=== PATIENT | female | born 1965 | race Caucasian/White ===

== ENCOUNTER 2016-08-21 13:31 | Emergency (ER) | payer OTHER ==
[~2016-08-21] VITALS: Wt 65.8 kg
[~2016-08-21 13:31] MED LIST: AMOXICILLIN500 MG PO; ANTIBIOTIC O500 U/GM TP; CEPHALEXIN500 M1 PO; CREON; CYCLOBENZAPRINE5 M3 PO; FEOSOL325 MG PO; FIBER GUMMIES1 EACH PO; FIBRE1 TAB PO; Feosol300 MG PO; GUMMY SWIRLS1 EACH PO; HYDROCODONE BIT1 T11 PO; IBUPROFEN600 MG PO; MOTRIN800 MG PO; MULTIPLE VITAMI1 CTB; OYSTER SHELL C500 M3 PO; PERCOCET 325 MG1 TA2 PO; PERCOCET 325 MG1 TA7 PO; PREVACID30 M1 PO; PREVACID30 MG PO; ULTRAM50 MG PO; ZOFRAN4 MG PO
[2016-08-21] MEDS ORDERED: OMEPRAZOLE40 MG PO (13:36)
[2016-08-21] MEDS ORDERED: NORCO 10-325 T1 EACH PO (15:04)
== END 2016-08-21 15:07 | disposition home or self-care (01) ==
LOC: ED 13:31
DX: T14.8 Other injury of unspecified body region (principal); R07.89 Other chest pain; M25.462 Effusion, left knee; Z98.84 Bariatric surgery status; Z87.891 Personal history of nicotine dependence; Z98.51 Tubal ligation status; Z90.49 Acquired absence of other specified parts of digestive tract; Z79.899 Other long term (current) drug therapy; Z91.011 Allergy to milk products; Z91.013 Allergy to seafood; W10.9XXA Fall (on) (from) unspecified stairs and steps, initial encounter; Y93.89 Activity, other specified; Y92.89 Other specified places as the place of occurrence of the external cause; Y99.9 Unspecified external cause status

== ENCOUNTER → 2016-12-13 | Outpatient (CLI) | payer OTHER ==
[~2016-12-13] MED LIST changes: +NORCO 10-325 T1 EACH PO; +OMEPRAZOLE40 MG PO
== END | disposition home or self-care (01) ==
LOC: MAMMO 12-01 11:00
DX: R92.8 Other abnormal and inconclusive findings on diagnostic imaging of breast (principal)

== ENCOUNTER 2017-05-10 20:02 | Inpatient (IN) | payer OTHER ==
[~2017-05-10] VITALS: Ht 160 cm; Wt 66.9 kg
--- NOTE | ~2017-05-10 | PR ---
[place], [place] PROGRESS NOTE NAME: RAJWINDER CISNEROS UNIT #: [id number] ROOM: 402 DOCTOR: JENNIFER METCALF MD BIRTHDATE: [birth year] DOS: 05/12/2017 SUBJECTIVE: The patient is doing better, sitting in a chair. OBJECTIVE: GENERAL: She is a pleasant woman in no apparent distress. VITAL SIGNS: Stable. She is afebrile. HEENT: Normocephalic, atraumatic NECK AND THYROID: Supple. No JVD, thyromegaly, or lymphadenopathy. HEART: Normal S1, S2. Regular rate and rhythm. LUNGS: Clear to auscultation and percussion. ABDOMEN: Soft. Nontender, nondistended. Bowel sounds present. EXTREMITIES: Normal ROM. No clubbing. No edema. LABORATORY DATA: White count of 3.1, hemoglobin 10.2, hematocrit 31.7, platelet count 166,000 with ANC of 1800. ASSESSMENT: 1. Neutropenia, which is improving. 2. Normocytic anemia. 3. History of gastric bypass. PLAN: Overall, her counts are improving, so is her ANC we will just keep a close watch at this time. If it drops, then further intervention, discussed with the patient. JENNIFER METCALF MD CM:PNTRANS [id number] [id number] JENNIFER METCALF MD 05/12/17 1657 interface
--- NOTE | ~2017-05-10 | CON ---
[place], [place] REPORT OF CONSULTATION NAME: RAJWINDER CISNEROS UNIT #: [id number] ROOM: 402 DOCTOR: JENNIFER METCALF MD BIRTHDATE: [birth year] DOS: 05/11/2017 HISTORY OF PRESENT ILLNESS: This is a pleasant 51-year-old woman who was initially admitted because of nausea, vomiting, diarrhea, which has been going for about 5 days associated with some mild abdominal cramps. On the day of admission, she developed some chest pressures as if someone is sitting on the chest associated with midsternal pain. Subsequently, she was admitted on routine CBC examination, she was found to be leukopenic and consulted for further evaluation and management. She states her daughter was diagnosed with flu about 2 weeks ago. PAST MEDICAL HISTORY: Significant for chronic pancreatitis, GERD, multiple contusions, PUD, anterolisthesis. PAST SURGICAL HISTORY: Tubal ligation, history of endometrial ablation, laparoscopic cholecystectomy, pancreatic surgery and history of gastric bypass. SOCIAL HISTORY: Former smoker, stopped smoking quite sometime back. No alcohol or drug abuse. FAMILY HISTORY: Father age 70. Mother at 41 of breast cancer. ALLERGIES: DAIRY, FISH AND IODINE. MEDICATIONS: Docusate sodium, Cymbalta, Premarin, Feosol, Estroven, multivitamins, omeprazole, Zofran, Zantac, Topamax, B complex. PHYSICAL EXAMINATION: GENERAL: She is a pleasant woman in no apparent distress. VITAL SIGNS: Blood pressure 121/66, respirations 19, pulse 61, temperature 97.8. My new female patient. RADIOLOGY: CT chest, abdomen, and pelvis showed no definite acute intra-abdominal pathology identified, status post gastric bypass and cholecystectomy and grade 2 anterolisthesis of L5 on S1 with chronic changes at the lumbosacral junction. LABORATORY DATA: His white count 2.8, hemoglobin 11.6, hematocrit 36.5, platelet count of 192,000. Sodium 142, potassium 4.2, chloride 108, bicarbonate 29, creatinine 0.57, GFR more than 60. AST 43, ALT 52. ASSESSMENT: 1. Leukopenia, probably secondary to bone marrow suppression/infection, medications etc. 2. Intractable nausea and vomiting. 3. Diarrhea. 4. Normocytic anemia. PLAN: ANC is in good numbers. We will keep a close watch at this time. I expect the counts to improve. If her overall condition improves. If not, then [place], [place] REPORT OF CONSULTATION NAME: RAJWINDER CISNEROS UNIT #: [id number] ROOM: 402 DOCTOR: TEA BERRIOS,JENNIFER BIRTHDATE: [birth year] she needs further intervention. If her counts drop, then further workup had detailed discussion with the patient about it, seemed to understand it. In the meantime, we will also review peripheral smear and follow the counts closely. Ample time was given to the patient to ask me questions. We will follow. Thanks for consulting and letting me participate in the care of this interesting patient. White count has also had an ANC 1600. JENNIFER METCALF MD CM:CONSTR:REPORT OF CONSULTATION 1053 05/11/17 1515 interface
[~2017-05-10 20:02] MED LIST changes: +OYSTER SHELL C1 EAC4 PO; -OYSTER SHELL C500 M3 PO
[2017-05-10 20:13] VITALS: BP 133/82
[2017-05-10 20:50] LABS: EOS % 1.1 % (1.0-4.0); HEMATOCRIT 36.5 % (37.0-47.0); HEMOGLOBIN 11.6 g/dl (12.0-16.0); LYMPH % 36.4 % (27.0-41.0); MEAN CELL VOLUME 97.9 fl (81.0-99.0); MEAN CORPUSCULAR HGB 31.1 pg (27.0-31.0); MEAN CORPUSCULAR HGB CONC 31.8 g/dl (33.0-37.0); MEAN PLATELET VOLUME 9.3 fl (9.6-12.3); MONO # 0.2 10*3/uL (0.1-1.0); MONO % 6.1 % (3.0-9.0); NEUT # 1.6 10*3/uL (2.3-7.9); PLATELET COUNT AUTOMATED 192 10*3/uL (130-400); RED BLOOD COUNT 3.73 10*6/uL (4.10-5.10); RED CELL DISTRI WIDTH 14.4 % (0-14.5); WHITE BLOOD COUNT 2.8 10*3/uL (4.8-10.8)
[2017-05-10 21:01] LABS: INTERNATIONAL NORM RATIO 0.9 (2.0-3.5)
[2017-05-10 21:06] LABS: ALKALINE PHOSPHATASE 110 U/L (45-117); BUN 9 mg/dl (7-24); CHLORIDE 108 mmol/L (98-107); CREATININE 0.57 mg/dL (0.55-1.02); POTASSIUM 4.2 mmol/L (3.5-5.1); SGOT/AST 43 IU/L (3-35); SGPT/ALT 52 U/L (12-78); SODIUM 142 mmol/L (136-145)
[2017-05-10 21:07] VITALS: BP 128/72
[2017-05-10 22:25] VITALS: BP 138/82
[2017-05-10 23:57] LABS: BILIRUBIN NEGATIVE (NEGATIVE); BLOOD NEGATIVE (NEGATIVE); CLARITY CLEAR (CLEAR); COLOR YELLOW (YELLOW); GLUCOSE NEGATIVE (NEGATIVE); KETONE NEGATIVE (NEGATIVE); LEUKO ESTERASE NEGATIVE (NEGATIVE); NITRITE NEGATIVE (NEGATIVE); PH 5.5 (5.0-9.0); SPECIFIC GRAVITY <= 1.005 (1.005-1.030); UROBILINOGEN 0.2 E.U./dl (0.2-1.0)
[2017-05-11] VITALS: BP 121/66
[2017-05-11 00:32] LABS: EPITHELIAL CELLS 0-5
[2017-05-11 00:33] LABS: RBC 0-2 rbc/hpf (0-2); WBC 0-2 wbc/hpf (0-5)
[2017-05-11] MEDS ORDERED: B COMPLEX1 EACH PO (01:43)
[2017-05-11] MEDS ORDERED: ZANTAC 300300 MG PO (01:43)
[2017-05-11] MEDS ORDERED: STOOL SOFTENER100 M3 PO (01:44)
[2017-05-11] MEDS ORDERED: TOPAMAX25 M3 PO (01:53)
[2017-05-11] MEDS ORDERED: NORCO 10-325 T1 EACH PO (01:55)
[2017-05-11] MEDS ORDERED: CYMBALTA60 MG PO (02:00)
[2017-05-11] MEDS ORDERED: Zofran4 MG PO (02:01)
[2017-05-11] MEDS ORDERED: ESTROVEN 155 M155 MG PO (02:02)
[2017-05-11] MEDS ORDERED: MULTIVITAMINS1 EAC6 PO (02:03)
[2017-05-11] MEDS ORDERED: PREMARIN30 GM V (02:04)
[2017-05-11 02:39] LABS: BASO % 0.4 % (0.0-1.0); EOS % 0.4 % (1.0-4.0); HEMOGLOBIN 9.9 g/dl (12.0-16.0); LYMPH # 1.2 10*3/uL (1.3-4.4); LYMPH % 48.2 % (27.0-41.0); MEAN CELL VOLUME 98.1 fl (81.0-99.0); MEAN CORPUSCULAR HGB 31.3 pg (27.0-31.0); MEAN CORPUSCULAR HGB CONC 31.9 g/dl (33.0-37.0); MEAN PLATELET VOLUME 10.1 fl (9.6-12.3); MONO # 0.1 10*3/uL (0.1-1.0); MONO % 5.6 % (3.0-9.0); NEUT # 1.1 10*3/uL (2.3-7.9); NEUT % 45.4 % (47.0-73.0); PLATELET COUNT AUTOMATED 167 10*3/uL (130-400); RED BLOOD COUNT 3.16 10*6/uL (4.10-5.10); RED CELL DISTRI WIDTH 14.2 % (0-14.5); WHITE BLOOD COUNT 2.5 10*3/uL (4.8-10.8)
[2017-05-11 02:50] LABS: INTERNATIONAL NORM RATIO 0.9 (2.0-3.5)
[2017-05-11 02:55] LABS: ALBUMIN 2.5 gm/dl (3.1-4.5); ALKALINE PHOSPHATASE 87 U/L (45-117); BUN 7 mg/dl (7-24); CHLORIDE 112 mmol/L (98-107); CHOLESTEROL 117 mg/dL (<200); CREATININE 0.45 mg/dL (0.55-1.02); HDL CHOLESTEROL 64 mg/dl (40-60); LDL CHOLESTEROL 34 mg/dL (9-159); PHOSPHOROUS 2.8 mg/dL (2.5-4.9); POTASSIUM 3.8 mmol/L (3.5-5.1); SGOT/AST 35 IU/L (3-35); SGPT/ALT 44 U/L (12-78); SODIUM 145 mmol/L (136-145); TOTAL PROTEIN 4.8 gm/dL (6.4-8.2); TRIGLYCERIDES 96 mg/dl (<150); VLDL CHOLESTEROL 19 mg/dL (6-40)
[2017-05-11 08:00] VITALS: BP 117/58
[2017-05-11 09:51] LABS: VITAMIN D, 25-HYDROXY 45.6 ng/mL (30-100)
[2017-05-11] MEDS ORDERED: XANAX0.5 MG PO (10:23)
[2017-05-11 12:00] VITALS: BP 114/67
[2017-05-11 16:00] VITALS: BP 126/78
[2017-05-11 20:00] VITALS: BP 114/72
[2017-05-12] VITALS: BP 125/63
[2017-05-12 07:25] LABS: BASO % 0.3 % (0.0-1.0); EOS % 0.6 % (1.0-4.0); HEMATOCRIT 31.7 % (37.0-47.0); HEMOGLOBIN 10.2 g/dl (12.0-16.0); LYMPH # 1.2 10*3/uL (1.3-4.4); LYMPH % 36.7 % (27.0-41.0); MEAN CELL VOLUME 97.5 fl (81.0-99.0); MEAN CORPUSCULAR HGB 31.4 pg (27.0-31.0); MEAN CORPUSCULAR HGB CONC 32.2 g/dl (33.0-37.0); MEAN PLATELET VOLUME 10.4 fl (9.6-12.3); MONO # 0.2 10*3/uL (0.1-1.0); MONO % 6.1 % (3.0-9.0); NEUT # 1.8 10*3/uL (2.3-7.9); PLATELET COUNT AUTOMATED 166 10*3/uL (130-400); RED BLOOD COUNT 3.25 10*6/uL (4.10-5.10); WHITE BLOOD COUNT 3.1 10*3/uL (4.8-10.8)
[2017-05-12 08:00] VITALS: BP 130/66
[2017-05-12 08:12] LABS: ALBUMIN 2.4 gm/dl (3.1-4.5); ALKALINE PHOSPHATASE 108 U/L (45-117); BUN 4 mg/dl (7-24); CHLORIDE 111 mmol/L (98-107); CREATININE 0.42 mg/dL (0.55-1.02); POTASSIUM 3.5 mmol/L (3.5-5.1); SGOT/AST 31 IU/L (3-35); SGPT/ALT 41 U/L (12-78); SODIUM 146 mmol/L (136-145)
== END 2017-05-12 14:03 | disposition home or self-care (01) | DRG 313 ==
LOC: ED 20:02 → EDHOLD 21:36 → 4E 22:09
PROVIDERS: Family Medicine; Hospitalist; Internal Medicine; Internal Medicine Hematology & Oncology
DX: R07.89 Other chest pain (principal); E43 Unspecified severe protein-calorie malnutrition; E87.8 Other disorders of electrolyte and fluid balance, not elsewhere classified; D70.9 Neutropenia, unspecified; K86.1 Other chronic pancreatitis; D64.9 Anemia, unspecified; R73.9 Hyperglycemia, unspecified; R74.0 Nonspecific elevation of levels of transaminase and lactic acid dehydrogenase [LDH]; K21.9 Gastro-esophageal reflux disease without esophagitis; M43.17 Spondylolisthesis, lumbosacral region; K27.9 Peptic ulcer, site unspecified, unspecified as acute or chronic, without hemorrhage or perforation; M54.9 Dorsalgia, unspecified; G89.29 Other chronic pain; K76.0 Fatty (change of) liver, not elsewhere classified; Z91.041 Radiographic dye allergy status; Z91.011 Allergy to milk products; Z91.013 Allergy to seafood; Z79.4 Long term (current) use of insulin; Z79.899 Other long term (current) drug therapy; Z98.890 Other specified postprocedural states; Z87.891 Personal history of nicotine dependence; Z90.49 Acquired absence of other specified parts of digestive tract; Z98.51 Tubal ligation status; Z83.3 Family history of diabetes mellitus; Z82.49 Family history of ischemic heart disease and other diseases of the circulatory system; Z80.3 Family history of malignant neoplasm of breast; Z68.26 Body mass index [BMI] 26.0-26.9, adult

== ENCOUNTER 2019-04-16 18:00 | Emergency (ER) | payer OTHER ==
[~2019-04-16] VITALS: Ht 157.4 cm; Wt 61.2 kg
[~2019-04-16 18:00] MED LIST changes: +B COMPLEX1 EACH PO; +CYMBALTA60 MG PO; +ESTROVEN 155 M155 MG PO; +MULTIVITAMINS1 EAC6 PO; +PREMARIN30 GM V; +STOOL SOFTENER100 M3 PO; +TOPAMAX25 M3 PO; +XANAX0.5 MG PO; +ZANTAC 300300 MG PO; +Zofran4 MG PO
== END 2019-04-16 21:42 | disposition home or self-care (01) ==
LOC: ED 18:00
DX: G43.909 Migraine, unspecified, not intractable, without status migrainosus (principal); K21.9 Gastro-esophageal reflux disease without esophagitis; Z91.013 Allergy to seafood; Z91.011 Allergy to milk products; Z79.899 Other long term (current) drug therapy; Z87.891 Personal history of nicotine dependence

== ENCOUNTER 2019-04-18 16:45 | Emergency (ER) | payer OTHER ==
[~2019-04-18] VITALS: Wt 61.2 kg
== END 2019-04-18 19:06 | disposition home or self-care (01) ==
LOC: ED 16:45
DX: G43.909 Migraine, unspecified, not intractable, without status migrainosus (principal); Z91.011 Allergy to milk products; Z91.013 Allergy to seafood; Z91.041 Radiographic dye allergy status; Z79.899 Other long term (current) drug therapy; Z90.49 Acquired absence of other specified parts of digestive tract; Z87.891 Personal history of nicotine dependence

== ENCOUNTER 2019-09-14 12:08 | Emergency (ER) | payer OTHER ==
[~2019-09-14] VITALS: Ht 157.4 cm; Wt 61.2 kg
[2019-09-14 13:17] LABS: BASO % 0.5 % (0.0-1.0); EOS # 0.2 10*3/uL (0.0-0.4); EOS % 1.8 % (1.0-4.0); HEMATOCRIT 34.1 % (37.0-47.0); LYMPH # 1.6 10*3/uL (1.3-4.4); LYMPH % 19.1 % (27.0-41.0); MEAN CELL VOLUME 99.7 fl (81.0-99.0); MEAN CORPUSCULAR HGB 30.4 pg (27.0-31.0); MEAN CORPUSCULAR HGB CONC 30.5 g/dl (33.0-37.0); MEAN PLATELET VOLUME 10.2 fl (9.6-12.3); MONO # 0.4 10*3/uL (0.1-1.0); MONO % 4.9 % (3.0-9.0); NEUT % 73.2 % (47.0-73.0); PLATELET COUNT AUTOMATED 235 10*3/uL (130-400); RED BLOOD COUNT 3.42 10*6/uL (4.10-5.10); RED CELL DISTRI WIDTH 13.2 % (0-14.5); WHITE BLOOD COUNT 8.2 10*3/uL (4.8-10.8)
[2019-09-14 13:31] LABS: ACT PARTIAL THROMBO TIME 22.5 SECONDS (20.0-32.1); INTERNATIONAL NORM RATIO 0.9 (2.0-3.5)
[2019-09-14 13:33] LABS: ALBUMIN 3.4 gm/dl (3.1-4.5); ALKALINE PHOSPHATASE 93 U/L (45-117); BUN 19 mg/dl (7-24); CHLORIDE 111 mmol/L (98-107); CREATININE 1.03 mg/dL (0.55-1.02); LIPASE 124 U/L (73-393); POTASSIUM 3.9 mmol/L (3.5-5.1); SGOT/AST 13 IU/L (3-35); SGPT/ALT 34 U/L (12-78); SODIUM 141 mmol/L (136-145); TOTAL PROTEIN 5.8 gm/dL (6.4-8.2)
[2019-09-14 13:34] LABS: TROPONIN I < 0.015 ng/ml (<0.045)
[2019-09-14 18:09] LABS: BILIRUBIN 1+ (NEGATIVE); CLARITY CLEAR (CLEAR); COLOR YELLOW (YELLOW); GLUCOSE NEGATIVE (NEGATIVE); KETONE NEGATIVE (NEGATIVE)
[2019-09-14 18:10] LABS: BLOOD NEGATIVE (NEGATIVE); LEUKO ESTERASE TRACE (NEGATIVE); NITRITE NEGATIVE (NEGATIVE); PH 6.5 (5.0-9.0); SPECIFIC GRAVITY 1.015 (1.005-1.030)
[2019-09-14 18:12] LABS: BACTERIA TRACE; CALCIUM OXALATE CRYSTALS TR; EPITHELIAL CELLS 0-2; RBC 0-2 rbc/hpf (0-2)
[2019-09-14 18:13] LABS: URINE AMPHETAMINES < 1000 (1000ng/ml); URINE BARBITURATES < 200 (200ng/ml); URINE BENZODIAZEPINES < 200 (200ng/ml); URINE CANNABINOIDS (THC) > 50 (50ng/ml); URINE COCAINE < 300 (300ng/ml); URINE METHADONE < 300 (300ng/ml); URINE OPIATES > 300 (300ng/ml)
[2019-09-14 18:24] LABS: URINE PHENCYCLIDINE < 25 (25ng/ml)
== END 2019-09-14 18:44 | disposition home or self-care (01) ==
LOC: ED 12:08
PROVIDERS: Emergency Medicine; Family Medicine
DX: G24.9 Dystonia, unspecified (principal); Z91.041 Radiographic dye allergy status; Z91.013 Allergy to seafood; Z79.899 Other long term (current) drug therapy; Z79.2 Long term (current) use of antibiotics

== ENCOUNTER → 2020-08-05 | Outpatient (CLI) | payer OTHER | END | disposition home or self-care (01) | LOC: MAMMO 12:52 | PROVIDERS: ATTEND Physician Assistant Medical | DX: R59.1 Generalized enlarged lymph nodes (principal); M79.622 Pain in left upper arm ==

== ENCOUNTER 2020-12-23 14:35 | Emergency (ER) | payer OTHER ==
[~2020-12-23] VITALS: Wt 55.3 kg
== END 2020-12-23 19:54 | disposition left against medical advice (07) ==
LOC: ED 14:35
DX: M79.10 Myalgia, unspecified site (principal); R19.7 Diarrhea, unspecified; R06.00 Dyspnea, unspecified; Z53.21 Procedure and treatment not carried out due to patient leaving prior to being seen by health care provider

== ENCOUNTER 2020-12-25 15:04 | Emergency (ER) | payer OTHER ==
[~2020-12-25] VITALS: Ht 157.4 cm; Wt 55.3 kg
[2020-12-25 17:33] LABS: BASO % 0.7 % (0.0-1.0); EOS # 0.1 10*3/uL (0.0-0.4); EOS % 1.4 % (1.0-4.0); HEMATOCRIT 40.8 % (37.0-47.0); LYMPH # 1.1 10*3/uL (1.3-4.4); LYMPH % 25.1 % (27.0-41.0); MEAN CELL VOLUME 98.8 fl (81.0-99.0); MEAN CORPUSCULAR HGB 31.2 pg (27.0-31.0); MEAN CORPUSCULAR HGB CONC 31.6 g/dl (33.0-37.0); MEAN PLATELET VOLUME 10.4 fl (9.6-12.3); MONO # 0.3 10*3/uL (0.1-1.0); MONO % 6.4 % (3.0-9.0); NEUT # 2.9 10*3/uL (2.3-7.9); NEUT % 65.9 % (47.0-73.0); PLATELET COUNT AUTOMATED 223 10*3/uL (130-400); RED BLOOD COUNT 4.13 10*6/uL (4.10-5.10); WHITE BLOOD COUNT 4.4 10*3/uL (4.8-10.8)
[2020-12-25 17:47] LABS: ALBUMIN 3.2 gm/dl (3.1-4.5); ALKALINE PHOSPHATASE 166 U/L (45-117); BUN 8 mg/dl (7-24); CHLORIDE 112 mmol/L (98-107); CREATININE 0.53 mg/dL (0.55-1.02); LIPASE 115 U/L (73-393); POTASSIUM 4.2 mmol/L (3.5-5.1); SGOT/AST 49 IU/L (3-35); SGPT/ALT 86 U/L (12-78); SODIUM 141 mmol/L (136-145); TOTAL PROTEIN 6.5 gm/dL (6.4-8.2)
[2020-12-25] MEDS ORDERED: ZOFRAN4 MG PO (18:36)
== END 2020-12-26 00:52 | disposition home or self-care (01) ==
LOC: ED 15:04
PROVIDERS: Family Medicine
DX: R07.89 Other chest pain (principal); Z20.822 Contact with and (suspected) exposure to COVID-19; Z91.011 Allergy to milk products; Z91.013 Allergy to seafood; Z79.899 Other long term (current) drug therapy; Z98.51 Tubal ligation status; Z98.890 Other specified postprocedural states

== ENCOUNTER 2023-04-24 14:31 | Emergency (ER) | payer BC ==
[~2023-04-24] VITALS: Ht 157.4 cm; Wt 68.0 kg
[2023-04-24 15:22] LABS: BASO % 0.5 % (0.0-1.0); EOS # 0.1 10*3/uL (0.0-0.4); EOS % 2.8 % (1.0-4.0); HEMATOCRIT 37.8 % (37.0-47.0); LYMPH # 1.4 10*3/uL (1.3-4.4); LYMPH % 33.1 % (27.0-41.0); MEAN CELL VOLUME 92.6 fl (81.0-99.0); MEAN CORPUSCULAR HGB 27.2 pg (27.0-31.0); MEAN CORPUSCULAR HGB CONC 29.4 g/dl (33.0-37.0); MEAN PLATELET VOLUME 11.4 fl (9.6-12.3); MONO # 0.3 10*3/uL (0.1-1.0); MONO % 6.1 % (3.0-9.0); NEUT # 2.5 10*3/uL (2.3-7.9); PLATELET COUNT AUTOMATED 214 10*3/uL (130-400); RED BLOOD COUNT 4.08 10*6/uL (4.10-5.10); RED CELL DISTRI WIDTH 13.2 % (0-14.5); WHITE BLOOD COUNT 4.3 10*3/uL (4.8-10.8)
[2023-04-24 15:46] LABS: ALKALINE PHOSPHATASE 221 U/L (46-116); BUN 11 mg/dl (9-23); CHLORIDE 108 mmol/L (98-107); SGPT/ALT 33 U/L (5-49); TOTAL PROTEIN 6.5 gm/dL (6.0-8.0)
[2023-04-24 15:53] LABS: BILIRUBIN Negative (Negative); BLOOD Negative (Negative); CLARITY Clear (Clear); COLOR Yellow (Yellow); GLUCOSE Negative (Negative); KETONE Negative (Negative); LEUKO ESTERASE Negative (Negative); NITRITE Negative (Negative); SPECIFIC GRAVITY <= 1.005 (1.001-1.030); UROBILINOGEN 0.2 E.U./dl (0.0-1.0)
[2023-04-24 16:00] LABS: URINE AMPHETAMINES Negative (1000ng/ml); URINE BARBITURATES Negative (200ng/ml); URINE BENZODIAZEPINES Negative (200ng/ml); URINE CANNABINOIDS (THC) Positive (50ng/ml); URINE COCAINE Negative (300ng/ml); URINE METHADONE Negative (300ng/ml); URINE OPIATES Negative (300ng/ml); URINE PHENCYCLIDINE Negative (25ng/ml)
[2023-04-24 16:11] LABS: HYALINE CAST 0-2; WBC 0-2 wbc/hpf (0-5)
== END 2023-04-24 18:12 | disposition home or self-care (01) ==
LOC: ED 14:31
PROVIDERS: Physician Assistant Medical
DX: G24.9 Dystonia, unspecified (principal); R55 Syncope and collapse; R51.9 Headache, unspecified; K21.9 Gastro-esophageal reflux disease without esophagitis; F32.A Depression, unspecified; Z91.011 Allergy to milk products; Z91.013 Allergy to seafood; Z91.041 Radiographic dye allergy status; Z79.899 Other long term (current) drug therapy; Z98.51 Tubal ligation status; Z98.84 Bariatric surgery status; Z98.890 Other specified postprocedural states; Z87.891 Personal history of nicotine dependence

== ENCOUNTER → 2024-04-24 | Outpatient (CLI) | payer BC | END | disposition home or self-care (01) | LOC: MAMMO 02-14 17:00 | PROVIDERS: ATTEND Internal Medicine | DX: Z12.31 Encounter for screening mammogram for malignant neoplasm of breast (principal) ==

== ENCOUNTER 2025-02-06 16:14 | Emergency (ER) | payer BC ==
[~2025-02-06] VITALS: Ht 157.4 cm; Wt 74.8 kg
[2025-02-06] MEDS ORDERED: SODIUM CHLORIDE 0.9% 500 ML IV ONE (16:35)
[2025-02-06] MEDS ORDERED: Ondansetron Hydrochloride 4 MG/2 ML VIAL IV ONE (16:40)
[2025-02-06 17:10] LABS: BILIRUBIN Negative (Negative); BLOOD Negative (Negative); CLARITY Clear (Clear); COLOR Yellow (Yellow); KETONE Negative (Negative); LEUKO ESTERASE Negative (Negative); NITRITE Negative (Negative); PH 7.0 (4.5-8.0); SPECIFIC GRAVITY <= 1.005 (1.001-1.030); UROBILINOGEN 0.2 E.U./dl (0.0-1.0)
[2025-02-06 17:11] LABS: BASO # 0.0 10*3/uL (0.0-0.1); BASO % 0.5 % (0.0-1.0); EOS # 0.1 10*3/uL (0.0-0.4); EOS % 2.5 % (1.0-4.0); MEAN CELL VOLUME 77.3 fl (81.0-99.0); MEAN CORPUSCULAR HGB 21.7 pg (27.0-31.0); MEAN PLATELET VOLUME 10.6 fl (9.6-12.3); MONO # 0.2 10*3/uL (0.1-1.0); MONO % 6.0 % (3.0-9.0); NEUT # 1.9 10*3/uL (2.3-7.9); NEUT % 52.7 % (47.0-73.0); NUCLEATED RED BLOOD CELL 0.0 % (0.0-0.0); NUCLEATED RED BLOOD CELL 0.0 10*3/uL (0.0-0.0); PLATELET COUNT AUTOMATED 233 10*3/uL (130-400); RED CELL DISTRI WIDTH 16.7 % (0-14.5)
[2025-02-06 17:18] LABS: EPITHELIAL CELLS 0-2; WBC 0-2 wbc/hpf (0-5)
[2025-02-06 17:28] LABS: BUN 6 mg/dl (9-23); CPK 92 U/L (34-171); SGPT/ALT 17 U/L (5-49)
[2025-02-06] MEDS ORDERED: PROTONIX40 MG PO (18:16)
[2025-02-06] MEDS ORDERED: Ondansetron4 MG PO (18:16)
[2025-02-06] MEDS ORDERED: CARAFATE1 G1 PO (18:16)
[2025-02-06] MEDS ORDERED: REGLAN10 M1 PO (18:16)
== END 2025-02-06 18:19 | disposition home or self-care (01) ==
LOC: ED 16:14
PROVIDERS: Emergency Medicine
DX: K29.70 Gastritis, unspecified, without bleeding (principal); R07.89 Other chest pain; D50.9 Iron deficiency anemia, unspecified; R51.9 Headache, unspecified; K21.9 Gastro-esophageal reflux disease without esophagitis; G40.909 Epilepsy, unspecified, not intractable, without status epilepticus; F41.9 Anxiety disorder, unspecified; F32.A Depression, unspecified; Z91.0110 Allergy to milk products, unspecified; Z91.013 Allergy to seafood; Z91.041 Radiographic dye allergy status; Z79.899 Other long term (current) drug therapy; Z98.84 Bariatric surgery status; Z98.890 Other specified postprocedural states; Z87.891 Personal history of nicotine dependence; Z90.49 Acquired absence of other specified parts of digestive tract